=== PATIENT | male | born 1960 | race Caucasian/White ===

== ENCOUNTER 2025-04-25 06:00 | Emergency (ER) | payer OTHER, SELFPAY ==
[2025-04-25 06:08] VITALS: BP 119/64
--- NOTE | 2025-04-25 06:15 | ED.GENMED ---
History of Present Illness
General
Chief Complaint: Musculo-Skeletal Complaint
Source: patient
Exam Limitations: none
Time Seen by Provider: 04/25/25 06:14
Nursing documentation reviewed up to this point in time: agreed with
History of Present Illness
History of Present Illness:
64 yr old male presents to the ED for evaluation. Patient has a history of sciatica and has had sciatica twice in the past. Each episode resolved with steroids. He has never seen an internet database specialist for this. He started with pain several
days ago. This is consistent with his prior episodes of sciatica. He reports pain is in his right buttocks and radiates down his right leg groin. He has been alternating between Tylenol ibuprofen and he took a gummy to sleep last night. He
denies any weakness in the lower extremities. He denies any bowel or bladder incontinence denies any numbness tingling. He denies any urinary frequency or urgency.
Phy Exam
General Physical Exam
General Presentation: no apparent distress
General age: appears stated age
General Skin: warm and dry
General Habitus: normal
General Mental: alert
General Hydration: appears well hydrated
Cardiovascular Exam
Cardiovascular Exam: regular rate/rhythm, no murmur and normal peripheral pulses
Neurological Exam
Neurological Exam: alert, oriented x3 and other (Normal distal sensation bilateral extremities normal dorsiflexion plantarflexion steady gait, mild discomfort /+ straight leg raise )
Musculoskeletal Exam
Musculoskeletal Exam: full ROM
Skin Exam
Skin Exam: normal color and warm/dry
Psychiatric Exam
Psychiatric Exam: normal mood/affect
Course
Orders/Labs/Results
Orders:
Orders
04/25/25 06:29
Dexamethasone Sod Phosphate [Decadron] 10 mg IM NOW STA
Lidocaine [Lidocaine 4% Patch] 1 patch TOPICAL NOW STA
Apply Lidocaine patch(s) to:: right buttocks region
04/25/25 06:30
Acetaminophen [Tylenol] 1,000 mg PO NOW STA
04/25/25 07:14
Acetaminophen [Tylenol] 1,000 mg .ROUTE .STK-MED ONE
Vital Signs
Initial and Last Documented VS:
Initial Vital Signs
Temp Pulse Resp BP Pulse Ox
98.4 F 74 16 119/64 96
04/25/25 06:08 04/25/25 06:08 04/25/25 06:08 04/25/25 06:08 04/25/25 06:08
Last Documented Vital Signs
Temp Pulse Resp BP Pulse Ox
98.4 F 74 16 119/64 96
04/25/25 06:08 04/25/25 06:08 04/25/25 06:08 04/25/25 06:08 04/25/25 06:18
MDM/Problems Addressed
Differential Diagnosis Includes:
Not limited muscle sprain strain sciatica
MDM/Problems Addressed:
Symptoms are consistent with sciatica, possible mild muscle strain component. Patient with no neurological deficits. Patient did drive to the ER Therefore was given Decadron here in the ER however no muscle relaxant. Muscle laxer was sent to
the pharmacy in addition to steroid taper. Patient felt slight improvement here in the ER. He has had sciatica several times in the past however has never seen orthopedics or had MRI I did discuss with patient that he will need to follow-up with
orthopedics and may need an MRI for further evaluation. He is to return if any worsening of symptoms.
*Pulse Oximetry
SaO2: 96
Oxygen Mode of Delivery: Room air
Patient hypoxic: no
*Critical Care Note
Total Time (30-74mins, 75-104mins- exclusive of procedures): Not Applicable
ED Attending Note
-
Portions of this chart may have been created with voice recognition software.� Occasional wrong word or��sound alike� substitutions may have occurred due to the inherent limitations of voice recognition software.
Discharge Plan
Departure
Patient Disposition: Home (Routine Discharge)
Date of Disposition: 04/25/25
Time of Disposition: 07:31
Patient with high blood pressure during this ER visit?: No
Condition: Fair
Covid-19: Not Applicable
Discharge Problem:
Sciatica
Instructions: Sciatica - ED (DC)
Prescriptions:
New
prednisone 10 mg Tablet
See Rx Instructions .ROUTE .COMPLEX Qty: 30 0RF
Rx Instructions:
Take By Mouth:
40 mg daily x3 days, 30 mg daily x3 days,
20 mg daily x3 days, 10 mg daily x3 days.
lidocaine 5 % adhesive patch,medicated
1 patch topical DAILY Qty: 15 0RF
cyclobenzaprine 10 mg tablet
10 mg PO Q8H PRN (Reason: muscle spasm) Qty: 10 0RF
Referrals:
Casey Garrido MD [Active, Orthopedics]
Jose Whipple MD [Active, Orthopedics]
UNKNOWN,NO INTERVIEW [Family Provider]
Activity Restrictions/Additional Instructions:
As discussed start steroids tomorrow as directed you were given a dose here in the ER. In addition you may take muscle relaxer as needed every [address] or drink alcohol taking your medication. In addition you were sent a
prescription for lidocaine patch use as directed. Follow-up with orthopedics in the next 2 days for reevaluation. Return if any worsening of symptoms of lower extremity weakness bowel or bladder incontinence increasing pain or any further concerns.
Interventions
Interventions:
*Risk Screen - Suicide Last Done: 04/25/25 06:08
*General Assessment Last Done: 04/25/25 06:08
*Neglect/Abuse Screening Last Done: 04/25/25 06:08
*ED- Fall Risk Assessment Last Done: 04/25/25 06:08
*ED COVID-19 Vaccine History Last Done: 04/25/25 06:08
ED-Musculoskeletal Assessment Last Done: 04/25/25 06:57
Discharge Date and Time
Print Language: [id number]
[2025-04-25] MEDS: DECADRON 10 MG IM (06:41)
[2025-04-25] MEDS: LIDOCAINE 4% PATCH 1 PATCH TOPICAL (06:41)
[2025-04-25] MEDS: TYLENOL 1000 MG PO (07:17)
[2025-04-25 07:38] VITALS: BP 141/90
== END 2025-04-25 07:45 | disposition home or self-care (01) ==
LOC: EMR 06:00
PROVIDERS: EMERGENCY PHYSICIAN Emergency Medicine
DX: M54.31 Sciatica, right side (principal)
CPT/HCPCS: 99284; 96372